=== PATIENT | male | born 1950 | race Caucasian/White ===

== ENCOUNTER → 2018-08-06 | Outpatient (CLI) | payer MEDICARE, BC ==
[~2018-08-06] MED LIST: REGADENOSON 0.4 MG/5 ML SYRINGE IV ONE
--- NOTE | 2018-08-06 10:35 | NM ---
EXAMINATION TYPE: NM stress lexiscan cardiolite DATE OF EXAM: 08/06/2018 COMPARISON: NONE HISTORY: Pain TECHNIQUE: After the intravenous administration of 10.8 mCi Tc 99m Sestamibi - Cardiolite resting SP ECT images acquired 45 minutes post injection. The patient received 0.4mg Lexiscan, 26.1 mCi Tc 99m Sestamibi - Stress images obtained [address] injection FINDINGS: Review of stress and rest SPECT images demonstrates no distinct perfusion abnormality. Gated analysi s shows normal wall motion with an estimated left ventricular ejection fraction of 55 %. IMPRESSION: No scintigraphic evidence for reversible ischemia.
--- NOTE | 2018-08-06 12:52 | EST ---
EXERCISE STRESS AGE: 68 SEX: M HT: 70" WT: 195 PROTOCOL: Lexiscan Cardiolite Stress Test HEART RATE REST: 53 BLOOD PRESSURE REST: 141/86 MAXIMUM HEART RATE ACHIEVED: 83 MAXIMUM BLOOD PRESSURE: 141/86 INDICATIONS: Cardiovascular disease. CLINICAL INFORMATION: Baseline rhythm is sinus mechanism, rate of 53, right axis deviation nonspecific, ST-T wave changes baseline. Blood pressure 141/86 mmHg. Patient received an injection of Lexiscan. Electrocardiographic monitoring revealed no evidence of diagnostic ischemic ST deviation. Cardiolite was injected per protocol. CONCLUSION: 1. Nondiagnostic electrocardiograph stress testing. 2. Nuclear images will be reported separately. MMODL / IJN: [id number] /
== END | disposition home or self-care (01) ==
LOC: RADNMMAIN 07:35
PROVIDERS: ATTEND Internal Medicine
DX: I25.10 Atherosclerotic heart disease of native coronary artery without angina pectoris (principal)
CPT/HCPCS: 93017; 78452; A9500; J2785

== ENCOUNTER → 2024-03-17 | Outpatient (CLI) | payer OTHER ==
--- NOTE | 2024-03-17 08:00 | US ---
EXAMINATION TYPE: US liver DATE OF EXAM: 03/17/2024 COMPARISON: NONE CLINICAL INDICATION: Male, 73 years old with history of R94.5 ABNORMAL RESULTS OF LIVER FUNCTION STUD IES; abnormal LFTs TECHNIQUE: Multiple sonographic images of the right upper quadrant are obtained. 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 Correlate for hepatic steatosis. 2. Uncomplicated devices. 3. Nonobstructing right-sided nephrolithiasis.
== END | disposition home or self-care (01) ==
LOC: RADUSWWP 07:25
PROVIDERS: ATTEND Family Medicine
DX: N20.0 Calculus of kidney (principal); R94.5 Abnormal results of liver function studies
CPT/HCPCS: 76705

== ENCOUNTER → 2024-05-04 | Outpatient (CLI) | payer OTHER ==
--- NOTE | 2024-05-04 15:27 | CTL ---
EXAMINATION TYPE: CT Low Dose Lung DATE OF EXAM ORDERED: 05/04/2024 HISTORY: Personal history nicotine dependence. 56 pack-year history, current smoker. Lung cancer scre ening CT DLP: 107.[address] CTDI: 3.0 mGy Automated exposure control for dose reduction was used. SCREENING VISIT: First screening visit COMPARISON: Chest radiograph 12/06/2015 TECHNIQUE: Low dose computed tomography scan was performed through the chest at 1 mm thick sections a nd reconstructed images in multiple planes at 1 mm and [address] DIAGNOSTIC QUALITY: Satisfactory FINDINGS: Nodules: Right middle lobe anterior 1.8 mm pulmonary nodule (series 6, image 42). LUNGS: COPD: Severity: Mild Fibrosis: Severity: None Lymph nodes: None Other findings: There is scarring in the right upper lobe. Linear scarring and/or atelectasis within the lingula and right lower lobe. RIGHT PLEURAL SPACE: Effusion: None Calcification: None Thickening: None Pneumothorax: None LEFT PLEURAL SPACE: Effusion: None Calcification: None Thickening: None Pneumothorax: None HEART: Heart Size: Mildly Enlarged, post-CABG changes. Coronary Calcification: Coronary artery calcifications and/or stents Pericardial Effusion: None OTHER FINDINGS: Upper abdomen: Left adrenal gland 1.9 cm nodule Bony thorax: Median sternotomy wires. Dextrocurvature of the thoracic spine. Increased thoracic kypho sis. DISH of the lower thoracic spine. Supraclavicular region: None Other: Arterial vascular calcifications noted. IMPRESSION: 1. Right middle lobe 1.8 mm pulmonary nodule. 2. Mild COPD changes. 3. Indeterminate 1.7 cm left adrenal gland nodule. Probably benign. Consider 12 month follow-up adren al CT. CT LUNG RAD AND CT CHEST RECOMMENDATION: Lung-Rad 2 Benign Appearance or Behavior: Continue annual sc reening with LDCT in 12 months. S Modifier (other clinically significant findings): S
== END | disposition home or self-care (01) ==
LOC: RADCTMAIN 06:17
PROVIDERS: ATTEND Family Medicine
DX: Z12.2 Encounter for screening for malignant neoplasm of respiratory organs (principal); J44.9 Chronic obstructive pulmonary disease, unspecified; R91.1 Solitary pulmonary nodule; F17.210 Nicotine dependence, cigarettes, uncomplicated
CPT/HCPCS: 71271

== ENCOUNTER → 2024-11-21 | Outpatient (CLI) | payer MEDICARE ==
[2024-11-21 13:42] LABS: African American GFR (CKD) >90 (>60 ml/min/1.73 sqM); Blood Urea Nitrogen 9 mg/dL (9-20); Non-African American GFR(CKD) >90 (>60 ml/min/1.73 sqM)
--- NOTE | 2024-11-21 15:08 | CT ---
EXAMINATION TYPE: CT angio chest CT DLP: 754.20 mGycm, Automated exposure control for dose reduction was used. DATE OF EXAM: 11/21/2024 2:56 PM COMPARISON: CT low-dose lung 05/04/2024 CLINICAL INDICATION:Male, 74 years old with history of R09.89 UNEQUAL BLOOD PERSSURE IN U EXTREM; une qual blood pressures in both arms. TECHNIQUE/CONTRAST: CTA scan of the thorax is performed without and with IV Contrast, patient injected with 100 ml mL of Isovue 370. 3D reconstructed images are created on an independent workstation and reviewed.. FINDINGS: Lungs/Pleura: Trace bilateral pleural effusions with associated atelectasis. No pneumothorax. Right u pper lobe linear scarring. Mild centrilobular emphysematous changes. No focal consolidation. Stable a nterior right middle lobe 2 mm pulmonary nodule (series 7, image 101). No new or enlarging pulmonary nodules. Airway: Large airways are patent. Heart: Cardiomegaly is demonstrated.No pericardial effusion. Post-CABG changes. Coronary artery ather osclerotic changes and stents present. Vasculature: No evidence of aortic aneurysm. Mild atherosclerotic calcifications aorta and its branch es. Conventional three-vessel aortic arch. No evidence for intramural hematoma or dissection. No evid ence for aortic coarctation. High-grade focal stenosis involving the right subclavian artery as it pa sses by the right first rib (series 6, image 23). This extends approximately 1.1 cm in length. The vi sualized celiac axis, SMA, and bilateral single renal arteries are patent with minimal stenosis. No p ulmonary embolism. Mediastinum: No gross evidence of adenopathy. Musculoskeletal: No acute osseous abnormalities. Median sternotomy wires. Dextrocurvature of the thor acic spine. Increased thoracic kyphosis. Multilevel degenerative disc disease. Diffuse bone demineral ization. Soft Tissues: Unremarkable. Lower neck: No significant findings. Upper Abdomen: Cholelithiasis. Several calcified peripancreatic lymph nodes. Stable left adrenal glan d 2.1 cm nodule. IMPRESSION: 1. No evidence for aortic aneurysm, intramural hematoma, or dissection. No evidence of aortic coarcta tion. 2. Focal high-grade stenosis of the right subclavian artery as it passes by the first rib. This is li robert cause of patient's symptoms. Recommend vascular surgery consultation. 3. Stable right middle lobe 2 mm pulmonary nodule. No new or enlarging pulmonary nodules. According t o Fleischner criteria, in a low-risk patient no follow-up is recommended. In a high-risk patient cons ider optional CT chest in 12 months. 4. Cholelithiasis. 5. Stable left adrenal gland 2.1 cm nodule. Probably benign. Consider 12 month follow-up adrenal CT. [facility], , 11/21/2024 3:06 PM
== END | disposition home or self-care (01) ==
LOC: RADCTMAIN 12:47
PROVIDERS: ATTEND Internal Medicine
DX: K80.20 Calculus of gallbladder without cholecystitis without obstruction (principal); E27.9 Disorder of adrenal gland, unspecified; R09.89 Other specified symptoms and signs involving the circulatory and respiratory systems; R91.1 Solitary pulmonary nodule; I77.1 Stricture of artery
CPT/HCPCS: 82565; 84520; 71275; 36415; Q9967